=== PATIENT | male | born 1945 | race Caucasian/White ===

== ENCOUNTER → 2016-11-09 | Outpatient (CLI) | payer OTHER | LOC: BHCLAF 11:30 | PROVIDERS: ATTEND Internal Medicine Cardiovascular Disease | DX: I25.10 Atherosclerotic heart disease of native coronary artery without angina pectoris (principal); I42.9 Cardiomyopathy, unspecified | CPT/HCPCS: 93306-PO ==

== ENCOUNTER → 2017-12-09 | Outpatient (CLI) | payer OTHER | LOC: BHCLAF 09:00 | PROVIDERS: ATTEND Internal Medicine Cardiovascular Disease | DX: I25.10 Atherosclerotic heart disease of native coronary artery without angina pectoris (principal); I10 Essential (primary) hypertension; E78.5 Hyperlipidemia, unspecified; Z95.5 Presence of coronary angioplasty implant and graft | CPT/HCPCS: 93005-PO ==

== ENCOUNTER → 2018-02-21 | Outpatient (CLI) | payer OTHER | LOC: CIMAGING 09:47 | PROVIDERS: ATTEND Family Medicine | DX: J18.9 Pneumonia, unspecified organism (principal); R59.9 Enlarged lymph nodes, unspecified; Z87.891 Personal history of nicotine dependence | CPT/HCPCS: 71046-PO ==

== ENCOUNTER → 2018-03-12 | Outpatient (CLI) | payer OTHER | LOC: CIMAGING 07:56 | PROVIDERS: ATTEND Family Medicine | DX: J18.1 Lobar pneumonia, unspecified organism (principal) | CPT/HCPCS: 71046-PO ==

== ENCOUNTER → 2018-03-21 | Outpatient (CLI) | payer OTHER ==
[~2018-03-21] MED LIST: IOPAMIDOL (ISOVUE-300) 100 ML BTL ONE
== END ==
LOC: CIMAGING 09:06
PROVIDERS: ATTEND Family Medicine
DX: J18.1 Lobar pneumonia, unspecified organism (principal); J98.4 Other disorders of lung
CPT/HCPCS: 71260; Q9967

== ENCOUNTER → 2018-04-07 | Outpatient (CLI) | payer OTHER | LOC: CIMAGING 13:15 | PROVIDERS: ATTEND Physician Assistant | DX: M51.36 Other intervertebral disc degeneration, lumbar region (principal); M48.07 Spinal stenosis, lumbosacral region; M54.16 Radiculopathy, lumbar region; M48.02 Spinal stenosis, cervical region; M50.320 Other cervical disc degeneration, mid-cervical region, unspecified level; M54.12 Radiculopathy, cervical region | CPT/HCPCS: 72050; 72100; Q9967; 74178-PO; 82565-PO ==

== ENCOUNTER → 2018-04-07 | Outpatient (CLI) | payer OTHER | LOC: CIMAGING 13:35 | PROVIDERS: ATTEND Physician Assistant Medical | DX: R31.0 Gross hematuria (principal); N28.1 Cyst of kidney, acquired | CPT/HCPCS: 74178-PO; 82565-PO ==

== ENCOUNTER → 2018-04-28 | Outpatient (CLI) | payer OTHER | LOC: CIMAGING 12:58 | PROVIDERS: ATTEND Internal Medicine Critical Care Medicine | DX: R91.8 Other nonspecific abnormal finding of lung field (principal) | CPT/HCPCS: 71250-PO ==

== ENCOUNTER 2018-06-24 13:53 | Observation (INO) | payer OTHER ==
[2018-06-24] MEDS ORDERED: LR 1,000 ML IV ONE (14:18)
[2018-06-24] MEDS ORDERED: ONDANSETRON 4 MG/2 ML VIAL IVP PRN (16:37)
[2018-06-24] MEDS ORDERED: HYDROmorphONE/DILAUDID 2 MG/ML INJ IVP PRN (16:37)
[2018-06-24] MEDS ORDERED: MIDAZOLAM 2 MG/2 ML VIAL IVP ONE (16:37)
[2018-06-24] MEDS ORDERED: DEXAMETHASONE 4 MG/ML VIAL IVP PRN (16:37)
[2018-06-24] MEDS ORDERED: fentaNYL 100 MCG/2 ML INJ IVP PRN (16:37)
[2018-06-24] MEDS ORDERED: NALOXONE HCL 0.4 MG/ML INJ IVP PRN (16:37)
[2018-06-24] MEDS ORDERED: HYDROCODONE/APAP 5/325 TAB PO PRN (16:37)
[2018-06-24] MEDS ORDERED: ACETAMINOPHEN 500 MG TAB PO PRN (16:37)
--- NOTE | 2018-06-24 16:39 | PDGENHP ---
History & Physical Chief Complaint: bladder lesion History of Present Illness: Pt has had cysto in office for hematuria and noted bladder lesion, plan for bx today. Pertinent Past, Social, Family History: Reviewed in chart and agree with all documented Relevant Physical Exam: HEENT--nl. Heart--RRR. Lungs--clear. Abd--soft / obese. Neuro--OX3 Cardiorespiratory Assessment: normal/stable
[2018-06-24] MEDS ORDERED: ceFAZolin 2 GM/DEXTROSE 100 ML IV ONE (16:40)
--- NOTE | 2018-06-24 16:40 | PDANEPAE ---
ANE History of Present Illness TURBT ANE Past Medical History - Cardiovascular History Hx Hypertension: Yes Hx Arrhythmias: No Hx Chest Pain: No Hx Coronary Artery / Peripheral Vascular Disease: Yes Hx CHF / Valvular Disease: Yes Hx Palpitations: No - Pulmonary History Hx COPD: No Hx Asthma/Reactive Airway Disease: No Hx Recent Upper Respiratory Infection: Yes Hx Oxygen in Use at Home: No Hx Sleep Apnea: Yes Sleep Apnea Screening Result - Last Documented: Positive Pulmonary History Comment: Pneumonia- March. SAM. quit smoking in 2000 - Neurologic History Hx Cerebrovascular Accident: No Hx Seizures: No Hx Dementia: No - Endocrine History Hx Diabetes: Yes Endocrine History Comment: Type 2 DM - Renal History Hx Renal Disorders: No - Liver History Hx Hepatic Disorders: No - Neurological & Psychiatric Hx Hx Neurological and Psychiatric Disorders: No - Cancer History Hx Cancer: Yes Cancer History Comment: Chronic Lymphocytic Leukemia. last chemo 2017 - Congenital Disorder History Hx Congenital Disorders: No - GI History Hx Gastrointestinal Disorders: Yes Gastrointestinal History Comment: GERD - Other Health History Other Health History: bladder tumor - Chronic Pain History Chronic Pain: Yes - Surgical History Prior Surgeries: lap abdoulaye. cardiac stents (7 total?). CABG x3. L TKA. bilateral hernia repair. bilateral big toe nails removed. cyst removed from neck ANE Review of Systems Review of Systems: - Exercise capacity METS (RN): 3 METS ANE Patient History - Allergies Allergies/Adverse Reactions: morphine Allergy (Severe, Verified 02/01/16 00:49) Unknown Sulfa (Sulfonamide Antibiotics) Allergy (Severe, Verified 02/01/16 00:49) Rash - Home Medications Home Medications: Aspirin [Aspirin 81mg (*)] 81 mg PO DAILY 12/30/14 [Last Taken 06/16/18] Atorvastatin Calcium 80 mg PO HS 12/30/14 [Last Taken 06/23/18] Carvedilol [Coreg] 25 mg PO BID 12/30/14 [Last Taken 06/24/18] Cholecalciferol Vit D3 [Vitamin D3 (*)] 1,000 units PO DAILY 12/30/14 [Last Taken 06/24/18] Isosorbide Mononitrate [Imdur 30 mg (*)] 30 mg PO DAILY 12/30/14 [Last Taken ] Multivitamins [Multivitamin (*)] 1 each PO DAILY 12/30/14 [Last Taken 06/16/18] Nitroglycerin [Nitrostat 0.4 mg (*)] 0.4 mg SL PRN PRN 12/30/14 [Last Taken 2 Years Ago ~06/24/16] Tamsulosin HCl [Flomax 0.4 MG (*)] 0.4 mg PO HS 12/30/14 [Last Taken 06/23/18] amLODIPine BESYLATE [Norvasc 5 mg (*)] 5 mg PO DAILY 12/30/14 [Last Taken ] Ranitidine HCl 150 mg PO BID 06/19/15 [Last Taken 06/24/18] Prasugrel HCl [Effient 10mg (*)] 10 mg PO DAILY 01/14/16 [Last Taken 06/16/18] Acyclovir BID 06/24/18 [Last Taken 06/24/18] Furosemide 40 mg 06/24/18 [Last Taken 06/24/18] Gabapentin [Neurontin 300 MG (*)] 300 mg 06/24/18 [Last Taken 06/23/18] Metformin HCl BID 06/24/18 [Last Taken 06/24/18] rOPINIRole HCL [Ropinirole HCl] BID 06/24/18 [Last Taken 06/24/18] - NPO status NPO Since - Liquids (Date): 06/24/18 NPO Since - Liquids (Time): 07:00 NPO Since - Solids (Date): 06/23/18 NPO Since - Solids (Time): 20:00 - Smoking Hx Smoking Status: Former smoker - Family Anes Hx Family Hx Anesthesia Complications: none known ANE Labs/Vital Signs - Vital Signs Blood Pressure: 135/86 Heart Rate: 65 Respiratory Rate: 16 O2 Sat (%): 95 Height: 167.64 cm Weight: 89.811 kg ANE Physical Exam - Airway Neck exam: FROM Mallampati Score: Class 2 Mouth exam: normal dental/mouth exam - Pulmonary Pulmonary: clear to auscultation - Cardiovascular Cardiovascular: regular rate and rhythym - ASA Status ASA Status: III ANE Anesthesia Plan Anesthesia Plan: GA w LMA
--- NOTE | 2018-06-24 16:40 | PDHPUP ---
History & Physical Update H&P update statement: This history and physical update is based on an assessment of the patient which was completed after admission or registration (within 24 hours), but prior to the surgery/procedure. H&P update: H&P reviewed & patient examined, no change in patient's condition since H&P completed
[2018-06-24] MEDS ORDERED: PROPOFOL 200 MG/20 ML VIAL ONE (16:44)
[2018-06-24] MEDS ORDERED: fentaNYL 100 MCG/2 ML INJ ONE ×2 (16:46→19:23)
[2018-06-24] MEDS ORDERED: ROCURONIUM 50 MG/5 ML VIAL ONE (16:49)
[2018-06-24] MEDS ORDERED: ONDANSETRON 4 MG/2 ML VIAL ONE (17:11)
[2018-06-24] MEDS ORDERED: METOCLOPRAMIDE 10 MG/2 ML VIAL ONE (17:11)
[2018-06-24] MEDS: LIDOCAINE 2% JELLY 20 ML (UROJECT) ONE (17:14)
[2018-06-24] MEDS ORDERED: SUGAMMADEX SODIUM 200 MG/2 ML VIAL IVP ONE (17:21)
--- NOTE | 2018-06-24 17:29 | POSTOPPROG ---
Post Op Note Date of Operation: 06/24/18 (dictated) Surgeon: Teja Friend Anesthesia: GET(General Endotracheal) Pre-op Diagnosis: bladder lesion Procedure: turbt Inf/Abcess present in the surg proc area at time of surgery?: No EBL: Minimal Specimen(s): sent bx
--- NOTE | 2018-06-24 17:33 | POSTANESTH ---
Post Anesthetic Evaluation Cardiovascular Status: Normal, Stable Respiratory Status: Normal, Stable Level of Consciousness/Mental Status: Can Participate in Eval, Mildly Sleepy, Arousable Pain Control: Adequate, Prn Tx Ordered Nausea/Vomiting Control: Adequate, Prn Tx Ordered Complications Possibly Related to Anesthesia: None Noted
[2018-06-24] MEDS ORDERED: LIDOCAINE 2% JELLY 5 ML TUBE TP PRN (21:29)
--- NOTE | 2018-06-24 21:30 | SOAPPROG ---
SOAP Progress Note Assessment/Plan: Assessment: Pt. being admitted overnight for gross hematuria & inability to void following Anderson removal in RR. Plan: See orders. Objective: Vital Signs Temp Pulse Resp BP Pulse Ox 36.9 C 72 18 152/83 H 96 06/24/18 21:20 06/24/18 21:20 06/24/18 21:20 06/24/18 21:20 06/24/18 21:20 06/23/18 06/24/18 06/25/18 05:59 05:59 05:59 Intake Total 30 Balance 30 ICD10 Worksheet Patient Problems: Problems Problem Status Onset Abdominal pain Acute Chest pain Acute
[2018-06-24] MEDS ORDERED: D50W 25 GM/50 ML SYR IVP PRN (21:32)
[2018-06-24] MEDS: HYDROCODONE/APAP 5/325 TAB PO PRN (21:51)
--- NOTE | 2018-06-25 04:31 | GOP ---
DATE OF OPERATION: 06/24/2018 SURGEON: Teja Friend MD PREOPERATIVE DIAGNOSIS: Hematuria of bladder lesion. POSTOPERATIVE DIAGNOSIS: Hematuria of bladder lesion. PROCEDURE PERFORMED: Removal of a bladder lesion and fulguration. He also had a urethral stricture. FINDINGS: DESCRIPTION OF PROCEDURE: After undergoing general anesthesia, appropriate time-out, he was prepped and draped in the normal sterile fashion. Urethra was dilated to a 24-[place] Juliette, and then the scope was passed under direct vision. He had [id number] BPH. Bladder had of an abnormal lesi on at the right ureteral orifice cephalad to it, and a cold cup biopsy was taken of that and then ful gurated with a bipolar button. At the end of the procedure, there were no other lesions identified a nd the bladder had no bleeding. I elected to place a Anderson catheter and then we will remove it and h ave him discharged home tonight to see me in the office in several weeks. Pathology specimens sent f or permanent sections. /[id number]/MODL
[2018-06-25] MEDS: LIDOCAINE 2% JELLY 20 ML (UROJECT) ONE (06:07)
[2018-06-25] MEDS: HYDROCODONE/APAP 5/325 TAB PO PRN (06:18)
[2018-06-25] MEDS: INSULIN REGULAR HUMAN 100 UNIT/ML UNIT SC SCH ×2 (08:03→12:27)
--- NOTE | 2018-06-25 09:29 | ASMTCMCOM ---
CM Note CM Note Notes: Chart reviewed for discharge planning needs. He is s/p urological surgery and has been medically cleared for discharge. No needs identified at this time. CM available should needs arise. Plan: DC to home no needs. Date Signed: 06/25/2018 09:29 AM Electronically Signed By:Sheeba Arreola RN
[2018-06-25 11:48] VITALS: BP 188/73
--- NOTE | 2018-06-25 13:09 | GDS ---
PREOPERATIVE DIAGNOSIS: Bladder lesion. POSTOPERATIVE DIAGNOSIS: Bladder lesion. HOSPITAL COURSE: The patient was evaluated in our office for hematuria and upon cystoscopy was found to have a bladder lesion. He was admitted for a TURBT. The patient was found to have gross hematur ia post removal of his catheter, likely from ureteral stricture, known urethral stricture, but possib ly from a bladder lesion. CBI is clear. He is going to have CBI discontinued, Anderson removed, and be discharged home in good condition. /[id number]/MODL
== END 2018-06-25 15:25 | disposition home or self-care (01) ==
LOC: FSGY 13:53 → F3E 20:09 → F1N 20:52
PROVIDERS: ADMIT Specialist; ATTEND Specialist
PROC: 0TBB8ZX Excision of Bladder, Via Natural or Artificial Opening Endoscopic, Diagnostic (ICD-10-PCS; principal; 2018-06-24 15:45)
DX: N30.21 Other chronic cystitis with hematuria (principal); N35.919 Unspecified urethral stricture, male, unspecified site; N40.0 Benign prostatic hyperplasia without lower urinary tract symptoms; E11.9 Type 2 diabetes mellitus without complications; I10 Essential (primary) hypertension; G47.33 Obstructive sleep apnea (adult) (pediatric); E78.5 Hyperlipidemia, unspecified; Z95.5 Presence of coronary angioplasty implant and graft; Z95.1 Presence of aortocoronary bypass graft
CPT/HCPCS: 52224; J0690; J1815; J2250; J2405; J2704; J2765; J3010

== ENCOUNTER → 2018-06-30 | Outpatient (CLI) | payer OTHER | LOC: CIMAGING 08:26 | PROVIDERS: ATTEND Internal Medicine Critical Care Medicine | DX: J98.11 Atelectasis (principal); Z95.5 Presence of coronary angioplasty implant and graft | CPT/HCPCS: 71250-PO ==

== ENCOUNTER 2018-09-15 11:38 | Day surgery (SDC) | payer OTHER ==
[2018-09-15] MEDS ORDERED: LR 1,000 ML IV ONE (12:51)
--- NOTE | 2018-09-15 13:32 | PDANEPAE ---
ANE History of Present Illness h/o polyps for colonoscopy ANE Past Medical History - Cardiovascular History Hx Hypertension: Yes Hx Arrhythmias: No Hx Chest Pain: No Hx Coronary Artery / Peripheral Vascular Disease: Yes Hx CHF / Valvular Disease: Yes Hx Palpitations: No - Pulmonary History Hx COPD: No Hx Asthma/Reactive Airway Disease: No Hx Recent Upper Respiratory Infection: Yes Hx Oxygen in Use at Home: No Hx Sleep Apnea: Yes Sleep Apnea Screening Result - Last Documented: Positive Pulmonary History Comment: Pneumonia- March. SAM. quit smoking in 2000 - Neurologic History Hx Cerebrovascular Accident: No Hx Seizures: No Hx Dementia: No - Endocrine History Hx Diabetes: Yes Endocrine History Comment: Type 2 DM - Renal History Hx Renal Disorders: No - Liver History Hx Hepatic Disorders: No - Neurological & Psychiatric Hx Hx Neurological and Psychiatric Disorders: No - Cancer History Hx Cancer: Yes Cancer History Comment: Chronic Lymphocytic Leukemia. last chemo 2017 - Congenital Disorder History Hx Congenital Disorders: No - GI History Hx Gastrointestinal Disorders: Yes Gastrointestinal History Comment: GERD - Other Health History Other Health History: bladder tumor - Chronic Pain History Chronic Pain: Yes - Surgical History Prior Surgeries: lap abdoulaye. cardiac stents (7 total?). CABG x3. L TKA. bilateral hernia repair. bilateral big toe nails removed. cyst removed from neck ANE Review of Systems Review of Systems: - Exercise capacity METS (RN): 4 METS ANE Patient History - Allergies Allergies/Adverse Reactions: morphine Allergy (Severe, Verified 09/08/18 10:52) Vomiting Sulfa (Sulfonamide Antibiotics) Allergy (Severe, Verified 09/08/18 10:52) Other-Enter Comments - Home Medications Home Medications: Aspirin [Aspirin 81mg (*)] 12/30/14 [Last Taken 1 Week Ago ~09/08/18] Atorvastatin Calcium 12/30/14 [Last Taken 1 Day Ago ~09/14/18] Cholecalciferol Vit D3 [Vitamin D3 (*)] 12/30/14 [Last Taken 1 Week Ago ~] Isosorbide Mononitrate [Imdur 30 mg (*)] 12/30/14 [Last Taken 09/15/18] Multivitamins [Multivitamin (*)] 12/30/14 [Last Taken 1 Week Ago ~09/08/18] Nitroglycerin [Nitrostat 0.4 mg (*)] 12/30/14 [Last Taken 2 Years Ago ~06/24/16 ] Tamsulosin HCl [Flomax 0.4 MG (*)] 12/30/14 [Last Taken 09/15/18] amLODIPine BESYLATE [Norvasc 5 mg (*)] 12/30/14 [Last Taken 09/15/18] Ranitidine HCl 06/19/15 [Last Taken 09/15/18] Prasugrel HCl [Effient 10mg (*)] 01/14/16 [Last Taken 1 Week Ago ~09/08/18] Acyclovir [Zovirax 200 mg (*)] 06/24/18 [Last Taken 09/15/18] Allopurinol [Allopurinol 300 MG (RX)] 06/24/18 [Last Taken 09/15/18] Carvedilol [Coreg (*)] 06/24/18 [Last Taken 09/15/18] Furosemide [Lasix 40 MG (*)] 06/24/18 [Last Taken 09/15/18] Gabapentin [Neurontin 300 MG (*)] 06/24/18 [Last Taken 09/15/18] metFORMIN HCL [Glucophage 500 mg (*)] 06/24/18 [Last Taken 1 Day Ago ~09/14/18] rOPINIRole HCL [Ropinirole HCl] 06/24/18 [Last Taken 1 Day Ago ~09/14/18] - NPO status NPO Since - Liquids (Date): 09/15/18 NPO Since - Liquids (Time): 04:15 NPO Since - Solids (Date): 09/14/18 NPO Since - Solids (Time): 07:30 - Smoking Hx Smoking Status: Former smoker - Family Anes Hx Family Hx Anesthesia Complications: none known ANE Labs/Vital Signs - Labs Result Diagrams: 09/15/18 13:15 - Vital Signs Blood Pressure: 122/83 Heart Rate: 70 Respiratory Rate: 14 O2 Sat (%): 96 Height: 167.64 cm Weight: 86.183 kg ANE Physical Exam - Airway Neck exam: FROM Mallampati Score: Class 2 Mouth exam: normal dental/mouth exam - Pulmonary Pulmonary: no respiratory distress - Cardiovascular Cardiovascular: regular rate and rhythym - ASA Status ASA Status: III ANE Anesthesia Plan Anesthesia Plan: GA with mask Urgent/Emergent Case: Marii kumar completed preop but documented later for safe timely pt care
--- NOTE | 2018-09-15 13:44 | PDGENHP ---
History & Physical Chief Complaint: hx polyps History of Present Illness: 73 year old male presents for evaluation of a complex transverse colon polyp Pertinent Past, Social, Family History: PMHx: CLL, SAM Relevant Physical Exam: HEENT: anicteric. CV: RRR +s1s2. Lungs: CTAB No w/r/ r. Abd: soft, nt, +Bs Cardiorespiratory Assessment: ASA 3
[2018-09-15] MEDS ORDERED: NS 500 ML IV SCH (13:45)
[2018-09-15] MEDS ORDERED: PROPOFOL/EMULSION 500 MG/50 ML BOTTLE IV ONE (13:56)
[2018-09-15] MEDS ORDERED: NALOXONE HCL 0.4 MG/ML INJ IVP PRN (14:03)
[2018-09-15] MEDS ORDERED: ACETAMINOPHEN 500 MG TAB PO PRN (14:03)
[2018-09-15] MEDS ORDERED: ONDANSETRON 4 MG/2 ML VIAL IVP PRN (14:03)
[2018-09-15] MEDS ORDERED: fentaNYL 100 MCG/2 ML INJ IVP PRN (14:03)
[2018-09-15] MEDS ORDERED: LR 500 ML IV PRN (14:03)
[2018-09-15] MEDS ORDERED: ALBUTEROL 3 ML DEYVIAL IH PRN (14:03)
--- NOTE | 2018-09-15 14:03 | POSTANESTH ---
Post Anesthetic Evaluation Cardiovascular Status: Normal, Stable Respiratory Status: Normal, Stable Level of Consciousness/Mental Status: Can Participate in Eval, Alert and Oriented Pain Control: Adequate, Prn Tx Ordered Nausea/Vomiting Control: Adequate, Prn Tx Ordered Complications Possibly Related to Anesthesia: None Noted
--- NOTE | 2018-09-15 15:08 | GIREPORT ---
[facility] - Endoscopy Department Patient Name: Michael Calle Procedure Date: 09/15/2018 1:58 PM Patient Type: Outpatient Attending MD/ ER Physician: Bertrand Ramirez MD Procedure: Colonoscopy Indications: High risk colon cancer surveillance: Personal history of colonic polyps Patient Profile: 73 year old male with a history of a complex transverse colon polyp s/p EMR presents for surveillance colonoscopy. Providers: Bertrand Ramirez MD Medicines: Monitored Anesthesia Care Complications: No immediate complications. Estimated blood loss: Minimal. Description of Procedure: After obtaining informed consent, the scope was passed under direct vis ion. Throughout the procedure, the patient's blood pressure, pulse, and oxyg en saturations were monitored continuously. The Colonoscope with irrigatio n channel was introduced through the anus and advanced to the cecum, identified by appendiceal orifice and ileocecal valve. The colonoscopy was performed without difficulty. The patient tolerated the procedure well. The quality of the bowel preparation was good. The ileocecal valve, appendi ceal orifice, and rectum were photographed. Findings: The perianal and digital rectal examinations were normal. Pertinent negatives include no palpable rectal lesions. Diverticula were found in the sigmoid colon. A tattoo was seen in the transverse colon. Two sessile polyps were found in the transverse colon. The polyps were 3 to 4 mm in size. These polyps were removed with a cold snare. Resection an d retrieval were complete. Estimated Blood Loss: Estimated blood loss was minimal. Post Op Diagnosis: - Diverticulosis in the sigmoid colon. - A tattoo was seen in the transverse colon. - Two 3 to 4 mm polyps in the transverse colon, removed with a cold sna re. Resected and retrieved. Recommendation: - Discharge patient to home (with escort). - The signs and symptoms of potential delayed complications were discus sed with the patient. - Patient has a contact number available for emergencies. - Return to normal activities tomorrow. - Resume previous diet. - Continue present medications. - Await pathology results. - Repeat colonoscopy in 2 years for surveillance. - Thank you for allowing me to participate in the care of your patient. Attending Participation: I personally performed the entire procedure. Bertrand Ramirez MD Bertrand Ramirez MD 09/15/2018 3:07:42 PM This report has been signed electronicallyBertrand Ramirez MD Number of Addenda: 0 Note Initiated On: 09/15/2018 1:58 PM Total Procedure Duration Time 0 hours 19 minutes 39 seconds [email or web address]
[2018-09-15 16:00] VITALS: BP 118/80
== END 2018-09-15 16:20 | disposition home or self-care (01) ==
LOC: FSGY 11:38
PROVIDERS: ATTEND Internal Medicine Gastroenterology
PROC: 0DBL8ZX Excision of Transverse Colon, Via Natural or Artificial Opening Endoscopic, Diagnostic (ICD-10-PCS; principal; 2018-09-15 14:00)
DX: D12.3 Benign neoplasm of transverse colon (principal); K57.30 Diverticulosis of large intestine without perforation or abscess without bleeding
CPT/HCPCS: J2704

== ENCOUNTER → 2018-10-20 | Outpatient (CLI) | payer OTHER | LOC: CIMAGING 07:02 | PROVIDERS: ATTEND Internal Medicine Nephrology | DX: N17.8 Other acute kidney failure (principal) | CPT/HCPCS: 76770-PO ==